=== PATIENT | male | born 2000 | race Caucasian/White ===

== ENCOUNTER → 2024-10-31 | Outpatient (CLI) | payer OTHER ==
[2024-10-31 15:29] LABS: PLATELET COUNT, AUTOMATED 236 10^3/uL (150-450)
[2024-10-31 15:57] LABS: CALCIUM LEVEL 8.9 MG/DL (8.5-10.1); CARBON DIOXIDE LEVEL 29 MMOL/L (20-31); CHLORIDE LEVEL 103 MMOL/L (98-107); CREATININE FOR GFR 0.94 MG/DL (0.70-1.30); GLOMERULAR FILTRATION RATE > 90.0 (>60); POTASSIUM SERUM 4.2 MMOL/L (3.5-5.1); SODIUM LEVEL 141 MMOL/L (136-145)
== END ==
LOC: M RAD 14:20
PROVIDERS: ATTEND Nurse Practitioner Family
DX: Z01.818 Encounter for other preprocedural examination (principal)

== ENCOUNTER 2024-11-06 12:02 | Day surgery (SDC) | payer OTHER ==
[~2024-11-06] VITALS: Ht 167.6 cm; Wt 78.9 kg
[2024-11-06] MEDS: LR 1,000 ML IV SCH (12:30)
[2024-11-06] MEDS ORDERED: LIDOCAINE 2% 100 MG/5 ML SDV (FOR ANES.) As Ordered ONE (15:12)
[2024-11-06] MEDS ORDERED: OXYC1TAB23 PO (15:26)
[2024-11-06] MEDS ORDERED: MIDAZOLAM INJ 2 MG/2 ML VIAL As Ordered ONE (15:27)
[2024-11-06] MEDS: ceFAZolin SOD 2 GM IV ONCE IV ONE (15:36)
[2024-11-06] MEDS ORDERED: ACETAMINOPHEN 1000MG/100ML IV BAG As Ordered ONE (16:06)
[2024-11-06] MEDS ORDERED: KETOROLAC 30 MG/ML 1 ML VIAL As Ordered ONE (16:06)
[2024-11-06] MEDS ORDERED: ONDANSETRON 4MG 2ML VIAL As Ordered ONE (16:07)
[2024-11-06] MEDS ORDERED: dexAMETHasone 4 MG/ML 1 ML VIAL As Ordered ONE (16:07)
[2024-11-06] MEDS ORDERED: HYDROMORPHONE HCL 0.5 MG/0.5 ML SYRINGE IV PRN (16:45)
[2024-11-06] MEDS ORDERED: LR 1,000 ML IV SCH (16:45)
[2024-11-06 18:00] VITALS: BP 132/64; TEMP 97.7; O2SAT 100
== END 2024-11-06 18:25 | disposition home or self-care (01) ==
LOC: M SDC 12:02 → EDUNIT# 12:15 → M SDC 18:25
PROVIDERS: ATTEND Urology
DX: N47.1 Phimosis (principal)
CPT/HCPCS: 54161; 88304; J0131; J0690; J1100; J1885; J2250; J2405; J2765; J3010